=== PATIENT | female | born 2005 | race Caucasian/White ===

== ENCOUNTER 2024-08-03 19:01 | Emergency (ER) | payer OTHER, SELFPAY ==
[2024-08-03 19:15] VITALS: BP 144/80; PULSE 124; RESP 20; TEMP 36.4; O2SAT 100
[2024-08-03 19:25] LABS: BEDSIDEPREGUCG Negative (Negative)
[2024-08-03 20:24] LABS: Add Urine Microscopic? YES; Appearance Urine Cloudy (Clear); Bacteria Urine 3+ /hpf; Bilirubin Urine Negative (Negative); Blood Urine 3+ (Negative); Color Urine Yellow (Yellow); Glucose Urine UA Negative (Negative); Ketones Urine Trace mg/dL (Negative); Leukocyte Esterase Ur 3+ LEU/UL (Negative); Nitrate Urine Positive (Negative); Non Pathogenic Casts 0-2; Protein Urine 2+ mg/dL (Negative); RBC Urine 51-100 /hpf (0-2); Specific Grav Ur 1.017 (1.001-1.035); Squamous Epithelial Cell Urine Occasional /hpf (Few); Urobilinogen Urine 0.2 mg/dL (<2.0); WBC Urine >100 /hpf (0-3); pH Urine 5.5 (5.0-9.0)
--- NOTE | 2024-08-03 22:34 | ED.FEMALEGU ---
HPI - Female Genitourinary General Chief complaint: Urogenital-Female Stated complaint: uti Time Seen by Provider: 08/03/24 21:51 History of Present Illness HPI Narrative: 18-year-old female presenting with dysuria. States that she 1st developed a burning with urination last night. States that then today she developed suprapubic pain and some flank pain. States it feels like a prior bladder infection. No fevers or vomiting. No further complaints. Related Data Allergies Allergy/AdvReac Type Severity Reaction Status Date / Time benzoyl peroxide Allergy Rash Verified 08/03/24 22:38 Review of Systems Review of Systems: All systems reviewed & are unremarkable except as noted in HPI and below Exam Narrative: GENERAL: Well-appearing, in no acute distress, pleasant cooperative HEAD: Normocephalic, atraumatic. EYES: PERRLA and EOMI. ENT: Grossly unremarkable NECK: Supple. CHEST: Clear to auscultation. No respiratory distress. HEART: Regular rate and rhythm ABDOMEN: Soft, nontender, nondistended EXTREMITIES: Normal range of motion. SKIN: Warm, dry, no rash. NEURO: Alert and oriented x3. PSYCH: Normal mood and affect. Course Vital Signs Vital signs: Vital Signs Temperature 97.6 F 08/03/24 19:15 Pulse Rate 124 H 08/03/24 19:15 Respiratory Rate 20 08/03/24 19:15 Blood Pressure 144/80 H 08/03/24 19:15 Pulse Oximetry 100 08/03/24 19:15 Oxygen Delivery Room Air 08/03/24 19:15 Temperature 97.6 F 08/03/24 19:15 Pulse Rate 102 H 08/03/24 22:52 Respiratory Rate 15 08/03/24 22:52 Blood Pressure 130/76 08/03/24 22:52 Pulse Oximetry 100 08/03/24 22:52 Oxygen Delivery Room Air 08/03/24 19:15 MDM - Female Genitourinary MDM Narrative Medical decision making narrative: 18-year-old female presenting with dysuria and flank pain. Exam remarkable for the above. UA is concerning for UTI. She is well-appearing and tolerating p.o. intake, do not feel further workup is required at this time. Will start her on Keflex advised close PCP follow-up. Appropriate return precautions given. Patient is agreeable this plan. Discharged in stable condition. Differential Diagnosis Differential diagnosis: Likely urinary tract infection and cystitis Lab Data Attestation: I reviewed the patient's lab results. Labs: Lab Results 08/03/24 08/03/24 Range/Units 19:18 19:23 Urine Color Yellow (Yellow) Urine Appearance Cloudy H (Clear) Urine pH 5.5 (5.0-9.0) Ur Specific [place] 1.017 (1.001-1.035) Urine Protein 2+ H (Negative) mg/dL Urine Glucose (UA) Negative (Negative) mg/dL Urine Ketones Trace H (Negative) mg/dL Ur Blood (Man) 3+ H (Negative) Urine Nitrate Positive H (Negative) Urine Bilirubin Negative (Negative) Urine Urobilinogen 0.2 (<2.0) mg/dL Leukocyte Esterase Rfl 3+ H (Negative) WENDIE/UL Urine RBC 51-100 H (0-2) /hpf Urine WBC >100 H (0-3) /hpf Ur Squamous Epith Cells Occasional (Few) /hpf Urine Bacteria 3+ H /hpf Urine Casts 0-2 POC Urine HCG, Qual Negative (Negative) Critical Care Time Critical Care Time Critical Care Time: No Discharge Plan Discharge Clinical Impression: Urinary tract infection Patient Disposition: Home, Self-Care Condition: Stable Instructions: Antibiotic Form, Urinary Tract Infection in Women (ED) Additional Instructions: Your urinalysis shows a bladder infection. We have started you on antibiotics, please take these as prescribed. Please follow-up with primary care. If your symptoms worsen or other concerning symptoms arise, please return to the ER. Prescriptions: New cephalexin 500 mg capsule 500 mg PO Q12H 7 Days Qty: 14 0RF Follow-up/Referrals: Pino Jovel DO [Physician] -
[2024-08-03 22:38] VITALS: BP 132/84; PULSE 108; RESP 15; O2SAT 100
[2024-08-03] MEDS: CEPHALEXIN 500 MG CAPSULE PO (22:51)
[2024-08-03 22:52] VITALS: BP 130/76; PULSE 102; RESP 15; O2SAT 100
== END 2024-08-03 22:53 | disposition home or self-care (01) ==
PROVIDERS: Emergency Provider Emergency Medicine
DX: N39.0 Urinary tract infection, site not specified (principal)
CPT/HCPCS: 81001; 81025; 87077; 87086; 87088; 87186; 99283; A9270